=== PATIENT | female | born 1995 | race Caucasian/White ===

== ENCOUNTER 2016-06-20 19:38 | Emergency (ER) | payer BC ==
[2016-06-20 19:47] VITALS: BP 131/90
[2016-06-20] MEDS ORDERED: Ketorolac 30 MG/ML SDV IVPUSH ONE (20:23)
[2016-06-20] MEDS ORDERED: Sodium Chloride 0.9% 10 ML Syringe FLUSH PRN (20:23)
--- NOTE | 2016-06-20 20:24 | EDM.PDOC ---
ED HPI GI/ABDOMINAL - General Chief Complaint: Abdominal Pain Stated Complaint: Abdominal pain Time Seen by Provider: 06/20/16 20:15 Source of Information: Reports: Patient, RN notes reviewed History Limitations: Reports: No limitations - History of Present Illness INITIAL COMMENTS - FREE TEXT/NARRATIVE: 20 year old female presents to the ED with chief complaint of LUQ abdominal pain for the past week. The pain seems to radiate around her side and is also located to her bilateral flanks. She's had intermittent vomiting for the past week as well. Her symptoms have progressively worsened over the past few days. She said the pain was mild until today. She reports last BM was yesterday. No constipation or diarrhea. She denies urinary symptoms of dysuria, frequency, urgency, or hematuria. She reports chills and sweats. She is unsure if she's had a fever. Today she started with a harsh, frequent cough that is productive of thick green sputum. She reports body aches and malaise. She has a history of pneumonia in the past. She denies sore throat, runny nose, ear pain. 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 Denies: fever HEENT: Reports: No symptoms. Denies: Throat pain Respiratory: Reports: Cough, Sputum. Denies: Shortness of Breath, Wheezing, Pleuritic Chest Pain Cardiovascular: Reports: No symptoms. Denies: Chest pain GI/Abdominal: Reports: Abdominal pain, Nausea, Vomiting. Denies: Constipation, Diarrhea : Reports: flank pain. Denies: dysuria, frequency, hematuria, urgency ED EXAM, GI/ABD - Physical Exam Exam: See Below Exam Limited By: No limitations General Appearance: alert, anxious, mild distress, obese Throat/Mouth: Normal inspection, Normal oropharynx, No airway compromise Neck: normal inspection, supple, non-tender, full range of motion Respiratory/Chest: no respiratory distress, lungs clear, normal breath sounds, no accessory muscle use, chest non-tender, other (harsh, non-productive cough during exam) Cardiovascular: normal peripheral pulses, regular rate, rhythm, no murmur GI/Abdominal: normal bowel sounds, soft, no distention, no mass, tenderness ( mild tenderness over LUQ), other (no peritoneal signs ). No: guarding, rebound , rigidity Back Exam: normal inspection, full range of motion, CVA tenderness (L). No: CVA tenderness (R) Neurological: alert, oriented, normal cognition Skin Exam: Warm, Dry, Intact Course - Vital Signs Last Recorded V/S: Last Vital Signs Temp 99.1 F 06/20/16 19:44 Pulse 95 06/20/16 19:44 Resp 18 06/20/16 19:44 BP 131/90 06/20/16 19:44 Pulse Ox 100 06/20/16 19:44 - Orders/Labs/Meds Orders: Active Orders 24 hr Category Date Time Status Peripheral IV Care [RC] . DIRECTED Care 06/20/16 20:24 Active Peripheral IV Insertion Adult [OM.PC] Stat Oth 06/20/16 20:23 Ordered Labs: Laboratory Tests 06/20/16 06/20/16 06/20/16 Range/Units 20:35 20:35 20:35 WBC 6.25 (3.98-10.04) K/mm3 RBC 5.26 H (3.98-5.22) M/mm3 Hgb 15.6 (11.2-15.7) gm/L Hct 46.0 H (34.1-44.9) % MCV 87.5 (79.4-94.8) fl MCH 29.7 (25.6-32.2) pg MCHC 33.9 (32.2-35.5) g/dl RDW Std Deviation 43.6 (36.4-46.3) fL Plt Count 200 (182-369) K/mm3 MPV 11.6 (9.4-12.3) fl Neut % (Auto) 73.9 H (34.0-71.1) % Lymph % (Auto) 9.6 L (19.3-51.7) % Coke % (Auto) 15.2 H (4.7-12.5) % Eos % (Auto) 1.1 (0.7-5.8) Baso % (Auto) 0.2 (0.1-1.2) % Neut # (Auto) 4.62 (1.56-6.13) K/mm3 Lymph # (Auto) 0.60 L (1.18-3.74) K/mm3 Coke # (Auto) 0.95 H (0.24-0.36) K/mm3 Eos # (Auto) 0.07 (0.04-0.36) K/mm3 Baso # (Auto) 0.01 (0.01-0.08) K/mm3 Manual Slide Review Normal smear Sodium 142 (136-145) mEq/L Potassium 3.4 L (3.5-5.1) mEq/L Chloride 105 (98-107) mEq/L Carbon Dioxide 24 (21-32) mEq/L Anion Gap 16.4 H (5-15) BUN 8 (7-18) mg/dL Creatinine 0.9 (0.55-1.02) mg/dL Est Cr Clr Drug Dosing 94.12 mL/min Estimated GFR (MDRD) > 60 (>60) mL/min BUN/Creatinine Ratio 8.9 L (14-18) Glucose 82 (74-106) mg/dL Calcium 9.8 (8.5-10.1) mg/dL Total Bilirubin 0.5 (0.2-1.0) mg/dL AST 27 (15-37) U/L ALT 75 H (14-59) U/L Alkaline Phosphatase 103 (46-116) U/L Total Protein 8.2 (6.4-8.2) g/dl Albumin 4.5 (3.4-5.0) g/dl Globulin 3.7 gm/dL Albumin/Globulin Ratio 1.2 (1-2) Urine Color (Yellow) Urine Appearance (Clear) Urine pH (5.0-8.0) Ur Specific [place] (1.005-1.030) Urine Protein (Negative) Urine Glucose (UA) (Negative) Urine Ketones (Negative) Urine Occult Blood (Negative) Urine Nitrite (Negative) Urine Bilirubin (Negative) Urine Urobilinogen (0.2-1.0) Ur Leukocyte Esterase (Negative) Urine RBC (0-5) /hpf Urine WBC (0-5) /hpf Ur Squamous Epith Cells (0-5) /hpf Urine Bacteria (FEW) /hpf Urine Mucus (FEW) /hpf Urine HCG, Qual (NEGATIVE) H. pylori IgG Antibody Negative (NEGATIVE) 06/20/16 06/20/16 Range/Units 20:48 20:48 WBC (3.98-10.04) K/mm3 RBC (3.98-5.22) M/mm3 Hgb (11.2-15.7) gm/L Hct (34.1-44.9) % MCV (79.4-94.8) fl MCH (25.6-32.2) pg MCHC (32.2-35.5) g/dl RDW Std Deviation (36.4-46.3) fL Plt Count (182-369) K/mm3 MPV (9.4-12.3) fl Neut % (Auto) (34.0-71.1) % Lymph % (Auto) (19.3-51.7) % Coke % (Auto) (4.7-12.5) % Eos % (Auto) (0.7-5.8) Baso % (Auto) (0.1-1.2) % Neut # (Auto) (1.56-6.13) K/mm3 Lymph # (Auto) (1.18-3.74) K/mm3 Coke # (Auto) (0.24-0.36) K/mm3 Eos # (Auto) (0.04-0.36) K/mm3 Baso # (Auto) (0.01-0.08) K/mm3 Manual Slide Review Sodium (136-145) mEq/L Potassium (3.5-5.1) mEq/L Chloride (98-107) mEq/L Carbon Dioxide (21-32) mEq/L Anion Gap (5-15) BUN (7-18) mg/dL Creatinine (0.55-1.02) mg/dL Est Cr Clr Drug Dosing mL/min Estimated GFR (MDRD) (>60) mL/min BUN/Creatinine Ratio (14-18) Glucose (74-106) mg/dL Calcium (8.5-10.1) mg/dL Total Bilirubin (0.2-1.0) mg/dL AST (15-37) U/L ALT (14-59) U/L Alkaline Phosphatase (46-116) U/L Total Protein (6.4-8.2) g/dl Albumin (3.4-5.0) g/dl Globulin gm/dL Albumin/Globulin Ratio (1-2) Urine Color Yellow (Yellow) Urine Appearance Slt cloudy H (Clear) Urine pH >=9.0 H (5.0-8.0) Ur Specific [place] 1.015 (1.005-1.030) Urine Protein 2+ H (Negative) Urine Glucose (UA) Negative (Negative) Urine Ketones Negative (Negative) Urine Occult Blood 3+ H (Negative) Urine Nitrite Negative (Negative) Urine Bilirubin Negative (Negative) Urine Urobilinogen 1.0 (0.2-1.0) Ur Leukocyte Esterase Negative (Negative) Urine RBC 20-30 H (0-5) /hpf Urine WBC 0-5 (0-5) /hpf Ur Squamous Epith Cells 5-10 H (0-5) /hpf Urine Bacteria Moderate H (FEW) /hpf Urine Mucus Moderate H (FEW) /hpf Urine HCG, Qual Negative (NEGATIVE) H. pylori IgG Antibody (NEGATIVE) Meds: Medications Discontinued Medications Generic Name Dose Route Start Last Admin Trade Name Freq PRN Reason Stop Dose Admin Al Hydroxide/Mg Hydroxide 30 0 ml 06/20/16 21:31 06/20/16 21:37 ml/ Lidocaine HCl 15 ml PO 06/20/16 21:32 45 ml ONETIME ONE Administration Hydromorphone HCl 0.5 mg 06/20/16 22:26 06/20/16 22:33 Dilaudid IVPUSH 06/20/16 22:27 0.5 mg ONETIME ONE Administration Sodium Chloride 1,000 mls @ 999 mls/hr 06/20/16 21:31 06/20/16 21:35 Normal Saline IV 06/20/16 22:31 999 mls/hr ONETIME ONE Administration Ketorolac Tromethamine 30 mg 06/20/16 20:23 06/20/16 20:36 Toradol IVPUSH 06/20/16 20:24 30 mg ONETIME ONE Administration Sodium Chloride 10 ml 06/20/16 20:23 06/20/16 20:38 Saline Flush FLUSH 10 ml ASDIRECTED PRN Administration Keep Vein Open - Re-Assessments/Exams Free Text/Narrative Re-Assessment/Exam: CBC reveals normal WBC and differential. CMP reveals mildly elevated anion gap. UA is contaminated but negative for nitrites and leukocytes. H Pylori is negative. I initially ordered a CT with renal stone protocol due to hematuria. However, the patient is currently menstruating. I offered CT but patient did not feel a CT was necessary. KUB ordered. Patient has a large amount of stool in her ascending colon with increased gas in the transverse and descending colon. Her symptoms are colicky in nature and consistent with mild constipation. Discussed diagnosis and treatment plan. She was instructed to return if not improved in 24 hours. Departure - Departure Time of Disposition: 23:00 Disposition: Home, Self-Care 01 Condition: good Clinical Impression: Cough Abdominal pain Qualifiers: Abdominal location: generalized Qualified Code(s): R10.84 - Generalized abdominal pain Constipation Qualifiers: Constipation type: unspecified constipation type Qualified Code(s): K59.00 - Constipation, unspecified Instructions: Constipation, Adult, [id number] Referrals: PCP,None [Primary Care Provider] - Forms: ED Department Discharge Additional Instructions: Drink at least 80 oz of water per day Tylenol or Ibuprofen as needed for pain Milk of magnesium 30ml once daily as needed OR Miralax 1 capful 1-2 times a day as needed for constipation Return to ER with worsening of symptoms, fever, or additional concerns - My Orders Last 24 Hours: My Active Orders 06/20/16 20:23 Peripheral IV Insertion Adult [OM.PC] Stat 06/20/16 20:24 Peripheral IV Care [RC] . DIRECTED - Assessment/Plan Last 24 Hours: My Active Orders 06/20/16 20:23 Peripheral IV Insertion Adult [OM.PC] Stat 06/20/16 20:24 Peripheral IV Care [RC] . DIRECTED
[2016-06-20] MEDS ORDERED: Alum Hydrox/Mag Hydrox/Simeth 30 ML, Lidocaine 2% 15 ML PO ONE ×2 (21:31)
[2016-06-20] MEDS ORDERED: Sodium Chloride 0.9% 1,000 ML IV ONE (21:31)
[2016-06-20] MEDS ORDERED: HYDROmorphone 0.5 MG/0.5 ML Syringe IVPUSH ONE (22:26)
--- NOTE | 2016-06-21 08:11 | CR ---
Abdomen: Supine view of the abdomen was obtained. Bowel gas pattern appears normal. No abnormal calcifications or soft tissue abnormality is seen. Bony structures are unremarkable. Impression: 1. No abnormality is seen on supine abdominal x-ray. Diagnostic code #1
== END 2016-06-20 23:11 | disposition home or self-care (01) ==
LOC: JD.ED 19:38 → MERGE 19:38 → JD.ED 23:11
DX: K59.00 Constipation, unspecified (principal); R05 Cough; Z88.1 Allergy status to other antibiotic agents
CPT/HCPCS: 36415; 74000; 80053; 81001; 81025; 85025; 86677; 87804; 96361; 96374; 96375; 99284; A9270; J1170; J1885; J7040; J7050